=== PATIENT | female | born 1965 | race Two or more races ===

== ENCOUNTER 2017-05-04 05:50 | Day surgery (SDC) | payer OTHER ==
[~2017-05-04 05:50] MED LIST: SYNTHROID50 MCG PO
[2017-05-04] MEDS ORDERED: PERCOCET 5-3251 EACH PO (08:37)
[2017-05-04] MEDS ORDERED: COLACE100 MG PO (08:37)
== END 2017-05-04 13:30 | disposition home or self-care (01) ==
LOC: CIR.AMB 05:50
DX: K60.3 Anal fistula (principal); K62.89 Other specified diseases of anus and rectum